=== PATIENT | male | born 1970 | race Caucasian/White ===

== ENCOUNTER 2016-12-19 13:38 | Emergency (ER) | payer OTHER ==
[2016-12-19] MEDS ORDERED: HYDROmorphone 1 mg/mL Inj IVPUSH ONE ×2 (13:45→16:15)
[2016-12-19] MEDS ORDERED: HYDROmorphone 1 mg/mL Inj ONE (13:46)
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
[2016-12-19] MEDS ORDERED: HYDROmorphone 1 mg/mL Inj IVPUSH PRN ×2 (13:55→16:15)
[2016-12-19] MEDS ORDERED: Ondansetron 2 mg/mL 2 mL Inj IVPUSH PRN (13:55)
[2016-12-19 14:05] LABS: BASOPHILS % (AUTO) 1 % (0-3); EOSINOPHILS % (AUTO) 3 % (0-5); MONOCYTES % (AUTO) 9 % (4-12); Mean Corpuscular Hemoglobin 31.4 pg (27.0-35.0); Mean Corpuscular Volume 90.1 fL (81-100); NEUTROPHILS % (AUTO) 40 % (40-74); Platelet Count 219 bil/L (150-400)
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
[2016-12-19] MEDS ORDERED: HYDROmorphone 1 mg/mL Inj IM PRN (15:15)
[2016-12-19] MEDS ORDERED: 0.9% Sodium Chloride 1,000 ML IV ONE (16:05)
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
== END 2016-12-19 17:38 | disposition short-term general hospital (02) ==
LOC: EDBD 13:38 → SED 13:38
DX: S72.352A Displaced comminuted fracture of shaft of left femur, initial encounter for closed fracture (principal); S82.192A Other fracture of upper end of left tibia, initial encounter for closed fracture; S82.832A Other fracture of upper and lower end of left fibula, initial encounter for closed fracture; S06.0X0A Concussion without loss of consciousness, initial encounter; M79.631 Pain in right forearm; F10.129 Alcohol abuse with intoxication, unspecified; V29.9XXA Motorcycle rider (driver) (passenger) injured in unspecified traffic accident, initial encounter; Y93.89 Activity, other specified; Y92.9 Unspecified place or not applicable; Y99.8 Other external cause status; C76.52 Malignant neoplasm of left lower limb
CPT/HCPCS: 36415; 70450; 71010; 72125; 72170; 73090; 73551; 73590; 80053; 85014; 85018; 85025; 86850; 96361; 96374; 96375; 99291; G0390; G0480; J1170; J2405; J7030